=== PATIENT | male | born 1970 | race Caucasian/White ===

== ENCOUNTER 2017-09-15 23:25 | Emergency (ER) | payer MEDICAID, OTHER ==
[~2017-09-15] VITALS: Ht 185.4 cm; Wt 136.1 kg
[2017-09-15 23:44] VITALS: BP 153/114
[2017-09-16] MEDS ORDERED: HYDROCODONE/APAP 10/325MG 1 EA TABLET PO ONE
[2017-09-16] MEDS ORDERED: ONDANSETRON 4 MG TAB.RAPDIS SL ONE
[2017-09-16] MEDS ORDERED: HYDROCODONE/APAP 10/325MG 1 EA TABLET ONE (00:12)
[2017-09-16] MEDS ORDERED: ONDANSETRON 4 MG TAB.RAPDIS ONE (00:12)
--- NOTE | 2017-09-16 00:54 | NUR ---
PT IS REC'ING A SPLINT.
== END 2017-09-16 00:57 | disposition home or self-care (01) ==
LOC: ER 23:28
DX: S62.300A Unspecified fracture of second metacarpal bone, right hand, initial encounter for closed fracture (principal); W01.198A Fall on same level from slipping, tripping and stumbling with subsequent striking against other object, initial encounter; Y93.89 Activity, other specified; Y92.89 Other specified places as the place of occurrence of the external cause; Y99.8 Other external cause status
CPT/HCPCS: 29125; 73130; 99284; A4606; Q0162; Z7610

== ENCOUNTER 2018-09-03 06:49 | Inpatient (IN) | payer MEDICAID ==
[~2018-09-03] VITALS: Ht 185.4 cm; Wt 144.7 kg
--- NOTE | 2018-09-03 06:56 | NUR ---
BIB EMT. COMPLAINING OF CP 2HRS AGO. PRESSURE LIKE PAIN,NON RADIATING. -NAUSEA, - VOMITING.
[2018-09-03] MEDS ORDERED: IV NS 0.9% 500 ML BAG IV ONE (07:00)
[2018-09-03] MEDS ORDERED: METOPROLOL TARTRATE INJ 5 MG/5 ML AMPUL IVP ONE (07:00)
[2018-09-03] MEDS ORDERED: METOPROLOL TARTRATE 25 MG TABLET PO ONE (07:00)
[2018-09-03] MEDS ORDERED: METOPROLOL TARTRATE 50 MG TABLET ONE (07:02)
[2018-09-03] MEDS ORDERED: METOPROLOL TARTRATE INJ 5 MG/5 ML AMPUL ONE (07:02)
--- NOTE | 2018-09-03 07:20 | NUR ---
REPORT RECEIVED FROM JAIMEE RETANA RN FOR IMANI. PT IN BED ASLEEP, HOOKED TO MAIL CENSOR, ONGOING IVPB 500CC. KEPT SAFE AND WARM. WILL MONITOR ACCORDINGLY.
[2018-09-03 07:23] LABS: BASOPHILS % (AUTO) 0.4 % (0.0-2.0); EOSINOPHILS % (AUTO) 2.1 % (0.0-6.0); HEMATOCRIT 49 % (39-51); HEMOGLOBIN 16.7 g/dL (13.5-17.5); LYMPHOCYTES # (AUTO) 2.4 /CMM (0.8-4.8); LYMPHOCYTES % (AUTO) 34.4 % (20.0-44.0); MEAN CORPUSCULAR HGB CONC 34 g/dl (31.0-36.0); MEAN CORPUSCULAR VOLUME 87 fL (80-96); MONOCYTES # (AUTO) 0.6 /CMM (0.1-1.30); MONOCYTES % (AUTO) 8.4 % (2.0-12.0); NEUTROPHILS # (AUTO) 3.8 /CMM (1.8-8.9); NEUTROPHILS % (AUTO) 54.7 % (43.0-81.0); PLATELET COUNT (AUTO) 164 /CMM (150-450); RED BLOOD CELL COUNT(AUTO) 5.58 MIL/uL (4.5-6.0); WHITE BLOOD COUNT (AUTO) 6.9 K/uL (4.3-11.0)
[2018-09-03 07:31] LABS: CALCIUM, SERUM 9.2 mg/dL (8.5-10.1); CREATININE 1.3 mg/dL (0.6-1.3); POTASSIUM 3.4 mmol/L (3.5-5.1)
[2018-09-03 07:43] LABS: ALBUMIN 3.9 g/dL (3.4-5.0); BILIRUBIN,DIRECT 0.1 mg/dL (0.0-0.2); BILIRUBIN,TOTAL 0.3 mg/dL (0.2-1.0)
--- NOTE | 2018-09-03 08:10 | NUR ---
FAMILY SHYLA JAUREGUI AT BEDSIDE
[2018-09-03] MEDS ORDERED: IBUP-1957 PO (08:23)
--- NOTE | 2018-09-03 09:41 | NUR ---
REPORT GIVEN TO ANTHONY HO OF TOM
--- NOTE | 2018-09-03 09:42 | NUR ---
DR BARTLETT AT BEDSIDE
[2018-09-03 10:00] VITALS: BP 147/95
[2018-09-03] MEDS ORDERED: DOCUSATE SODIUM 100 MG CAPSULE PO PRN (10:00)
[2018-09-03] MEDS ORDERED: MAG HYDROX/AL HYDROX/SIMETH 30 ML UDC PO PRN (10:00)
[2018-09-03] MEDS ORDERED: MORPHINE SULFATE INJ 2 MG/ML DISP.SYRIN IV PRN (10:00)
[2018-09-03] MEDS ORDERED: ONDANSETRON HCL/PF 4 MG/2 ML VIAL IVP PRN (10:00)
[2018-09-03] MEDS ORDERED: AMIODARONE 900 MG in IV D5W 500 ML IV PRN ×2 (10:00→10:07)
[2018-09-03] MEDS ORDERED: AMIODARONE 150 MG in IV D5W 100 ML IV ONE (10:00)
[2018-09-03 10:16] LABS: THYROID STIMULATING HORMONE 3.595 uIU/mL (0.358-3.74)
[2018-09-03] MEDS: ACETAMINOPHEN 325 MG TABLET PO PRN ×2 (11:34→17:07)
[2018-09-03] MEDS: METOPROLOL TARTRATE 50 MG TABLET PO SCH ×4 (11:35→23:51)
[2018-09-03 12:00] VITALS: BP 154/86
[2018-09-03] MEDS: ENOXAPARIN SODIUM 120 MG/0.8 ML DISP.SYRIN SQ SCH ×2 (12:15→21:09)
--- NOTE | 2018-09-03 12:30 | NUR ---
NOTIFIED DR. BARTLETT PATIENT SR NOW AND HR ON 60'S,ORDERED D/C AMIO AND STAT CTCORONARYANGIOGRAPHY,CLARIFIED WITH RADIOLOGIST HOW TO ENTER ORDER PER RADIOLOGIST DO CT ANGIO OF HEART WITH 3D,NURSING SUP MADE AWARE.
[2018-09-03 16:00] VITALS: BP 123/78
[2018-09-03] MEDS ORDERED: CT SWABBABLE VALVE TRANS SET 1 EA INFUS.SET MC ONE (16:16)
[2018-09-03] MEDS ORDERED: IV NS 0.9% 250 ML IV ONE (16:16)
[2018-09-03] MEDS ORDERED: IOHEXOL-350 100 ML VIAL IV ONE (16:16)
[2018-09-03] MEDS ORDERED: NITROGLYCERIN 0.4 MG/TAB BOTTLE ONE (16:18)
--- NOTE | 2018-09-03 19:03 | NUR ---
TD NOTES RECEIVED PT ON BED. A/O X 4. ON TELE MONITOR SB 58. ON ROOM AIR NO RESPIRATORY DISTRESS NOTED. IV ACCESS LEFT HAND G20 PATENT AND INTACT. HEAD OF BED ELEVATED. SIDE RAILS UP. CALL LIGHT WITHIN REACH. BED ALARM ON. WILL CONTINUE TO MONITOR PT CLOSELY.
--- NOTE | 2018-09-03 19:05 | NUR ---
TD RN NOTES CALLED RADIOLOGY TO F/U WITH CTA RESULTS.
--- NOTE | 2018-09-03 19:32 | NUR ---
TD RN NOTES CTA RESULTS RELAYED TO DR BARTLETT.
[2018-09-03 19:56] VITALS: BP 132/67
[2018-09-03 20:00] VITALS: BP 132/67
[2018-09-03] MEDS ORDERED: SIMVASTATIN 20 MG TABLET PO SCH (22:00)
[2018-09-04] VITALS: BP 149/95
--- NOTE | 2018-09-04 04:12 | NUR ---
TD RN NOTES PT REFUSED V/S TAKEN @ 0400. EXPLAINED RISK AND BENEFITS, PT STILL REFUSED.
[2018-09-04] MEDS: METOPROLOL TARTRATE 50 MG TABLET PO SCH ×2 (06:00→12:47)
[2018-09-04 06:34] LABS: BASOPHILS % (AUTO) 0.5 % (0.0-2.0); EOSINOPHILS % (AUTO) 2.5 % (0.0-6.0); HEMATOCRIT 46 % (39-51); HEMOGLOBIN 15.7 g/dL (13.5-17.5); LYMPHOCYTES # (AUTO) 2.6 /CMM (0.8-4.8); LYMPHOCYTES % (AUTO) 38.7 % (20.0-44.0); MEAN CORPUSCULAR HGB CONC 34 g/dl (31.0-36.0); MEAN CORPUSCULAR VOLUME 87 fL (80-96); MONOCYTES # (AUTO) 0.4 /CMM (0.1-1.30); MONOCYTES % (AUTO) 6.7 % (2.0-12.0); NEUTROPHILS # (AUTO) 3.4 /CMM (1.8-8.9); NEUTROPHILS % (AUTO) 51.6 % (43.0-81.0); PLATELET COUNT (AUTO) 154 /CMM (150-450); RED BLOOD CELL COUNT(AUTO) 5.26 MIL/uL (4.5-6.0); WHITE BLOOD COUNT (AUTO) 6.6 K/uL (4.3-11.0)
[2018-09-04 06:38] LABS: ALANINE AMINOTRANSFERASE 59 U/L (12-78); ALBUMIN 3.6 g/dL (3.4-5.0); ALKALINE PHOSPHATASE 94 U/L (46-116); ASPARTATE AMINOTRANSFERASE 23 U/L (15-37); BILIRUBIN,TOTAL 0.3 mg/dL (0.2-1.0); CARBON DIOXIDE 27 mmol/L (21-32); CHLORIDE 107 mmol/L (98-107); CREATININE 1.1 mg/dL (0.6-1.3); GLUCOSE 99 mg/dL (74-106); MAGNESIUM 1.9 mg/dL (1.8-2.4); PHOSPHORUS 4.2 mg/dL (2.5-4.9); POTASSIUM 3.8 mmol/L (3.5-5.1); SODIUM SERUM 142 mmol/L (136-145); TOTAL PROTEIN, SERUM 6.5 g/dL (6.4-8.2); UREA NITROGEN, BLOOD 17 mg/dL (7-18)
[2018-09-04 06:42] LABS: CHOLESTEROL 193 mg/dL (<200); HDL CHOLESTEROL 40 mg/dL (40-60); LDL 132 mg/dL (0-99); THYROID STIMULATING HORMONE 0.804 uIU/mL (0.358-3.74); TRIGLYCERIDES 163 mg/dL (30-150)
--- NOTE | 2018-09-04 07:20 | NUR ---
TD RN NOTES NO ACUTE CHANGES NOTED DURING THE SHIFT. WILL ENDORSE TO THE AM NURSE FOR CONTINUITY OF CARE.
--- NOTE | 2018-09-04 07:39 | NUR ---
albino rn note received patient in bed , resting comfortably , on tele monitor sr 56 , lt hand hl intact , no sob , on ra noted no c\o discomfort at this time, bed in lowest and locked position , call light within reach , will cont to monitor closely
[2018-09-04 08:00] VITALS: BP 120/72
[2018-09-04] MEDS: ENOXAPARIN SODIUM 120 MG/0.8 ML DISP.SYRIN SQ SCH (08:31)
[2018-09-04 08:37] VITALS: BP 120/72
[2018-09-04] MEDS ORDERED: ASPIRIN 81 MG TAB.CHEW PO SCH (09:00)
--- NOTE | 2018-09-04 09:30 | NUR ---
MS RN NOTE SEEN BY DR BARTLETT PER HIS PERFECTIVE OK TO GO HOME, WILL F\U
--- NOTE | 2018-09-04 11:22 | NUR ---
MS RN NOTE SPOKE WITH ELVIA HO TECHNICAL PROJECT LEAD ,NOTIFIED THAT PATIENT WANTS TO GO HOME, STATED THAT NEED TO SEE HIM FIRST PRIOR DISCHARGE, WILL F\U
[2018-09-04 12:00] VITALS: BP 137/72
[2018-09-04 12:47] VITALS: BP 138/94
--- NOTE | 2018-09-04 13:01 | NUR ---
MS RN NOTE PATIENT DONT WAIT TILL DOCTOR SEE MELLY , EAGER TO GO HOME , DISCHARGE INSTRUCTION GIVEN , INSTRUCTED TO FOLLOW UP WITH PRIMARY CARE DOCTOR AND DR BARTLETT AT HIS OFFICE NEXT WEEK AND RETURN FOR WORSENING SYMPTOMS, SMOCKING CESSATION GIVEN AND ACS INSTRUCTION GIVEN , UNDERSTOOD , HL REMOVED , TELE REMOVED , WENT TO [facility] BY WALKING WITH FATHER WITH STABLE CONDITION, SIGNED FORM ELVIA VALENCIA RN CO FOUNDER NOTIFIED Addendum: 09/04/18 at 1351 by PIYUSH CHILDERS RN [id number] BELONGING SIGNED
--- NOTE | 2018-09-04 13:51 | NUR ---
MS RN NOTE PATIENT FORGET HIS CELL PHONE DERMATOLOGIST ,CALLED TO PATIENT STATED THAT WILL COME SOON TO PIPELINES SUPERINTENDENT
== END 2018-09-04 13:05 | disposition left against medical advice (07) | DRG 201 ==
LOC: ER 06:50 → TELE1 09:20 → TELE-TD 09:41 → MEDSG1 09-04 09:15
PROVIDERS: ADMIT Registered Nurse; ATTEND Registered Nurse
DX: I48.91 Unspecified atrial fibrillation (principal); I21.A1 Myocardial infarction type 2; I10 Essential (primary) hypertension; G47.33 Obstructive sleep apnea (adult) (pediatric); Z82.49 Family history of ischemic heart disease and other diseases of the circulatory system
CPT/HCPCS: 36415; 71045-TC; 75574; 80048-TC; 80053-TC; 80061-TC; 80076-TC; 82962-TC; 83735-TC; 83880; 84100-TC; 84439-TC; 84443-TC; 84484-TC; 85025-TC; 85730-TC; 87081-TC; 93307-TC; G0378; J0282; J1650; J3490; J7040; J7050; J7060; Q9967